=== PATIENT | male | born 1980 | race Caucasian/White ===

== ENCOUNTER 2017-01-24 16:35 | Emergency (ER) | payer OTHER ==
[~2017-01-24] VITALS: Ht 177.8 cm; Wt 73.0 kg
[2017-01-24 16:42] VITALS: Ht 177.8 cm; Wt 73.0 kg
[2017-01-24] MEDS ORDERED: HYDROmorphone INJ 1 MG/ML SYR IM STA (18:17)
[2017-01-24] MEDS ORDERED: KETOROLAC TROMETHAMINE 60 MG/2 ML VIAL IM STA (18:17)
[2017-01-24] MEDS ORDERED: DEXAMETHASONE SOD INJ 10 MG/ML VIAL IM ONE (18:30)
[2017-01-24] MEDS ORDERED: LRS20 PO (18:40)
[2017-01-24] MEDS ORDERED: PRED20TA PO (18:40)
--- NOTE | 2017-01-24 19:10 | DIAGNOSTIC IMAGING REPORT ---
LUMBAR SPINE 5 VIEWS HISTORY: Back pain from injury COMPARISON: None. FINDINGS: There is no fracture. No subluxation. Disc spaces are preserved for age. Mild levoscoliosis. The sacrum is intact. IMPRESSION: No fracture or subluxation within the lumbar spine. Mild levoscoliosis. Electronically signed by: Bk Jolley M.D. 01/24/2017 7:09 PM Dictated Date/Time: 01/24/2017 7:07 PM
--- NOTE | 2017-01-24 19:11 | DIAGNOSTIC IMAGING REPORT ---
THORACIC SPINE 3 VIEWS HISTORY: Back pain from injury COMPARISON: None. FINDINGS: There is no fracture. No subluxation. Mild disc space narrowing and small endplate osteophytes within the mid thoracic spine. Mild dextroscoliosis. IMPRESSION: No fracture or subluxation within the thoracic spine. Mild dextroscoliosis. Mild degenerative disc disease within the mid thoracic spine. Electronically signed by: Bk Jolley M.D. 01/24/2017 7:10 PM Dictated Date/Time: 01/24/2017 7:09 PM
[2017-01-24] MEDS ORDERED: DiphenhydrAMINE HCL 50 MG/ML VIAL IM STA (19:29)
[2017-01-24] MEDS ORDERED: MoRPHine SULFATE 10 MG/ML CARP/VIAL IM STA (19:29)
[2017-01-24] MEDS ORDERED: MoRPHine SULFATE 4 MG/ML 1 ML CARP\\VIAL ONE (19:54)
[2017-01-24] MEDS ORDERED: OXYC1TAB3 PO (21:02)
[2017-01-24] MEDS ORDERED: CYCL10TA6 PO (21:02)
[2017-01-24] MEDS ORDERED: MoRPHine SULFATE 4 MG/ML 1 ML CARP\\VIAL IM STA (21:03)
[2017-01-24 21:07] VITALS: BP 144/84; PULSE 85; TEMP 36.9; O2SAT 95
--- NOTE | 2017-01-24 21:10 | EMERGENCY ROOM VISIT NOTE ---
History First contact with patient: 18:05 Chief Complaint: BACK PAIN Stated Complaint: BACK PAIN History of Present Illness The patient is a 36 year old male who presents to the Emergency Room with complaints of a headache, neck pain, back pain and pain radiating down both legs to his feet. The patient reports that he was helping a neighbor push a car 2 days ago. The patient reports feeling a pop in the center of his back. The patient reports progressively worsening pain. The patient does admit to a history of scoliosis and occasional back problems. He does not recall ever having any MRIs of his back. The patient reports that he went to an urgent care center and was prescribed prednisone and Flexeril around lunchtime. The patient reports that he went home and his symptoms are not improving. He currently denies any bladder/bowel difficulties/incontinence, saddle anesthesias , foot drop or significant focal weakness of the lower extremities. He rates his discomfort a 9 out of 10. The patient was transported here via ambulance for further evaluation. Review of Systems 10 system review was performed and was negative except for pertinent positives and negatives as indicated in history of present illness Past Medical/Surgical History Medical Problems: (1) Orthopedic surgery (2) [place] Teeth Removal Family History Unremarkable Social History Smoking Status: Current Every Day Smoker Alcohol Use: none Marital Status: single Occupation Status: unemployed Current/Historical Medications Scheduled Cyclobenzaprine Hcl (Flexeril), 10 MG PO TID Prednisone (Prednisone), 20 MG PO UD Scheduled PRN Baclofen (Baclofen), 20 MG PO BID PRN for Muscle Spasm Oxycodone Ir (Roxicodone Ir), 1-2 TAB PO Q4H PRN for Pain Allergies Coded Allergies: Morphine (Verified Allergy, Mild, HIVES, 05/25/15) Codeine (Unverified Allergy, Unknown, SWELLING/DIFFICULTY BREATHING, ) Physical Exam Vital Signs Date Time Temp Pulse Resp B/P Pulse Ox O2 Delivery O2 Flow Rate FiO2 01/24/17 19:52 144/84 01/24/17 19:26 85 18 173/155 01/24/17 16:42 36.9 123 18 130/92 95 Room Air Physical Exam CONSTITUTIONAL: Healthy and well nourished. Alert and oriented X 3 with positive affect. Patient appears in moderate discomfort from pain. HEENT: Normocephalic, atraumatic. Pupils equal, round and reactive. Ears and nares are clear. Noted photophobia. No subconjunctival hemorrhage, hemotympanum, raccoon's eyes or Wren sign. NECK: The patient has minimal tenderness to palpation of the cervical paraspinous muscles. RESPIRATORY: Clear to auscultation bilaterally with no wheezing, crackles, rhonchi or stridor. CARDIOVASCULAR: Regular rate and rhythm with no murmurs, rubs or gallops. GASTROINTESTINAL: Bowel sounds present in all quadrants. Soft and nontender to palpation. MUSCULOSKELETAL: Examination shows diffuse tenderness to palpation through the thoracolumbar paraspinous muscles. The patient has no focal central spinal discomfort or step-offs. Pelvis stable with rock. Negative logroll bilaterally. Positive straight leg raise bilaterally. Equal hand evidence custodian bilaterally. Ankle plantar/dorsiflexion strength is 4 out of 5 and symmetric bilaterally. Pedal pulses are intact. INTEGUMENTARY: No rash or other significant dermatologic conditions noted. NEUROLOGIC: Cranial nerves II-XII grossly intact. No focal neurologic deficits noted. Upper and lower extremity deep tendon reflexes are 2+ and symmetric bilaterally. Medical Decision & Procedures ER Provider Diagnostic Interpretation: My interpretation of thoracic and lumbar spine x-rays does not show any acute fractures or subluxations. Radiologist reports were also reviewed with concurrence. Medications Administered Medications (Trade) Dose Ordered Sig/Mora Route Start Time Stop Time Status Last Admin Dose Admin Ketorolac Tromethamine (Toradol Inj) 60 mg NOW STAT IM 01/24/17 18:17 01/24/17 18:19 DC 01/24/17 18:36 60 MG Hydromorphone HCl (Dilaudid Inj) 1 mg ONE STAT IM 01/24/17 18:17 01/24/17 18:19 DC 01/24/17 18:35 1 MG Dexamethasone Sodium Phosphate (Decadron Inj) 10 mg NOW ONCE IM 01/24/17 18:30 01/24/17 18:31 DC 01/24/17 18:36 10 MG Diphenhydramine HCl (Benadryl Inj) 12.5 mg NOW STAT IM 01/24/17 19:29 01/24/17 19:31 DC 01/24/17 20:04 12.5 MG Morphine Sulfate (MoRPHine SULFATE INJ) 8 mg STK-MED ONCE .ROUTE 01/24/17 19:54 01/24/17 19:57 DC 01/24/17 20:03 8 MG ED Course Patient history and physical exam were performed. Nurse's notes were reviewed. The patient was administered IM Dilaudid, Toradol and Decadron. X-rays of the thoracolumbar spine were normal. The patient reported that he had no relief with the Dilaudid. It is noted that he has morphine listed as an allergy ; however, the tissue reports that he does not know how that was placed in his medical record as he has had morphine in the past without adverse reaction. The patient also reported that his ears felt like they were on fire. He denied any other pruritus or swelling. At this point, I did elect to administer Benadryl 12.5 mg and morphine 8 mg IM. This further reduced his pain to a 6 out of 10, but still requested some additional medication prior to discharge. At this point, he was administered morphine 4 mg IVP. Patient was provided home packs and prescriptions for Flexeril and OxyIR 5 mg. He was encouraged to take ibuprofen and Tylenol in alternating fashion for baseline pain relief. Intermittent application of ice to the back for the next 24 hours, then heat as needed. The patient was instructed to follow-up with his PCP for further management, especially if symptoms are not improving within the next 48 hours. The patient voiced understanding of all discharge instructions, was happy with plan of care, and rated his pain a 5 out of 10 at the conclusion of my exam. Medical Decision [place] Drug Monitoring Program Search Results: patient reviewed within database, no issues identified Impression Primary Impression: Lumbar strain Departure Information Prescriptions Oxycodone Ir (Roxicodone Ir) 5 Mg Tab 1-2 TAB PO Q4H Y for Pain, #15 TAB For Initial Treatment Prov: Tariq Vann PA 01/24/17 Cyclobenzaprine Hcl (FLEXERIL) 10 Mg Tab 10 MG PO TID for spasm for 15 Days, #45 TAB Prov: Tariq Vann PA 01/24/17 Referrals No Doctor, Assigned (PCP) Patient Instructions My [facility] Problem Qualifiers Primary Impression: Lumbar strain Encounter type: initial encounter Qualified Codes: S39.012A - Strain of muscle, fascia and tendon of lower back, initial encounter
[2017-01-24] MEDS ORDERED: OXYCODONE IR HOME PACK PO ONE (21:15)
[2017-01-24] MEDS ORDERED: FLEXERIL HOME PACK 10 MG VIAL PO ONE (21:15)
== END 2017-01-24 21:09 | disposition home or self-care (01) ==
LOC: C.EDB 16:37
DX: S39.012A Strain of muscle, fascia and tendon of lower back, initial encounter (principal); X50.1XXA Overexertion from prolonged static or awkward postures, initial encounter; Y92.89 Other specified places as the place of occurrence of the external cause; F17.210 Nicotine dependence, cigarettes, uncomplicated

== ENCOUNTER 2017-02-20 21:01 | Emergency (ER) | payer OTHER ==
[~2017-02-20] VITALS: Ht 180.3 cm; Wt 75.0 kg
[~2017-02-20 21:01] MED LIST: LRS20 PO; OXYC1TAB3 PO; PRED20TA PO
[2017-02-20 21:11] VITALS: TEMP 36.9; Ht 180.3 cm; Wt 75.0 kg
[2017-02-20] MEDS ORDERED: XYLOCAINE 1%/SOD BICARB 20 ML VIAL INFIL ONE (21:30)
--- NOTE | 2017-02-20 22:01 | DIAGNOSTIC IMAGING REPORT ---
CT HEAD WITHOUT CONTRAST (CT) CLINICAL HISTORY: Head pain status post head trauma. Intoxication. COMPARISON STUDY: 07/20/2015 TECHNIQUE: Axial CT of the brain is performed from the vertex to the skull base. IV contrast was not administered for this examination. CT DOSE: FINDINGS: No intra or extra-axial mass lesions are visualized. There is no CT evidence of acute cortical infarction. There is no evidence of midline shift. There is no acute hemorrhage. No calvarial fractures are visualized. There is no evidence of pathologic ventricular dilatation. There is no evidence of acute sinusitis. There is a stable sphenoid sinus retention cyst/polyp IMPRESSION: No acute intracranial findings Electronically signed by: Ethan Jones M.D. 02/20/2017 9:59 PM Dictated Date/Time: 02/20/2017 9:58 PM
--- NOTE | 2017-02-20 22:04 | DIAGNOSTIC IMAGING REPORT ---
CT OF THE CERVICAL SPINE CLINICAL HISTORY: Neck pain status post trauma COMPARISON STUDY: 07/20/2015 CT DOSE: TECHNIQUE: CT scan of the cervical spine was performed from the skull base to the thoracic inlet. Images are reviewed in the axial, sagittal, and coronal planes. IV contrast was not administered for this examination. FINDINGS: The visualized portions of the lung apices reveal no evidence of pneumothorax. The prevertebral soft tissues are normal. No fractures or subluxations are visualized. There is a stable calcification within the C2-3 disc. There is a chronic deformity of the left thyroid cartilage. IMPRESSION: No evidence of acute fracture or traumatic subluxation. Electronically signed by: Ethan Jones M.D. 02/20/2017 10:02 PM Dictated Date/Time: 02/20/2017 10:00 PM
--- NOTE | 2017-02-20 22:06 | DIAGNOSTIC IMAGING REPORT ---
CT FACIAL BONES-MXILLOFAC WITHOUT CT DOSE: 1342.54 mGy.cm CLINICAL HISTORY: Facial pain status post trauma COMPARISON STUDY: No previous studies for comparison. TECHNIQUE: Helical images were acquired in the transverse plane. The study was reviewed and analyzed on the independent 3-D workstation. The pterygoid plates appear intact. The zygomatic arches appear intact. The globes appear intact. There is no evidence of orbital emphysema. The orbital smart and floor appear intact. The mandibular condyles appear intact. There is nasal septal deviation to the right. There is a left-sided nasal septal spur. There is a sphenoid sinus retention cyst/polyp. IMPRESSION: No facial fractures identified. Electronically signed by: Ethan Jones M.D. 02/20/2017 10:04 PM Dictated Date/Time: 02/20/2017 10:02 PM
[2017-02-20] MEDS ORDERED: KETOROLAC TROMETHAMINE 60 MG/2 ML VIAL IM STA (22:23)
[2017-02-20] MEDS ORDERED: AMOXICILLIN HOME PACK 250 MG/TAB PO ONE (22:30)
[2017-02-20] MEDS ORDERED: CHLORHEXIDINE GLUCONATE 0.12% 480 ML MT ONE (22:30)
[2017-02-20] MEDS ORDERED: TRAM-10 PO (22:40)
[2017-02-20] MEDS ORDERED: AMOX500C3 PO (22:40)
--- NOTE | 2017-02-20 22:43 | EMERGENCY ROOM VISIT NOTE ---
History First contact with patient: 21:13 Chief Complaint: LACERATION/CUT (SUT/DERMABOND) Stated Complaint: FALL, LIP LACERATION Nursing Triage Summary: patient fell at residents. suffered lac to left upper lip. walked to walk in clinic in [place] where staff refused to see him due to unknown reasons. they called [facility] who arrived and called ambulance for transport to hospital. patient states he has VINCENT but no other ailments. denies LOC. smells of alcohol History of Present Illness The patient is a 36 year old male who presents to the Emergency Department via EMS for evaluation of his facial laceration. The patient reports that he tripped well and related up the steps at his mother's home causing him to fall striking his face and the ground. He reports that he was able to catch himself somewhat. He complains of pain to the LEFT upper lip with associated laceration. He Describes a headache at this point. The patient reports that he was dropped off at the walk-in clinic in [place]. They declined to treat the patient. [facility] was contacted and the patient was offered an ambulance to bring him to the emergency Department for further evaluation and management. The patient admits to drinking alcohol tonight. He admits to "3 beers". Patient denies any prefall headaches, distance, lightheadedness, chest pain, palpitations, shortness of breath. He reports most recently being treated for low back pain issues after straining his back. He denies any numbness or tingling into the distal cavities. He denies a loss of control bowel/bladder saddle anesthesia. He denies any injury to the back this evening. He is had no follow-up since his recent visit to this facility. He denies any other drug use. He rates his current discomfort as a 3/10. Review of Systems A complete 10-point Review of Systems was discussed with the patient, with pertinent positives and negatives listed in the History of Present Illness. All remaining Review of Systems questions can be considered negative unless otherwise specified. Past Medical/Surgical History Medical Problems: (1) Orthopedic surgery (2) [place] Teeth Removal Social History Smoking Status: Current Every Day Smoker Alcohol Use: none Marital Status: single Occupation Status: unemployed Current/Historical Medications Scheduled Amoxicillin (Amoxil), 500 MG PO TID Scheduled PRN Tramadol (Ultram), 1-2 TAB PO Q4H PRN for Pain Allergies Coded Allergies: Morphine (Verified Allergy, Mild, HIVES, 05/25/15) Codeine (Unverified Allergy, Unknown, SWELLING/DIFFICULTY BREATHING, ) Physical Exam Vital Signs Date Time Temp Pulse Resp B/P Pulse Ox O2 Delivery O2 Flow Rate FiO2 02/20/17 23:05 90 18 123/83 96 02/20/17 21:13 93 02/20/17 21:11 36.9 96 18 129/88 99 Room Air Pain Rating (0-10): 3 Physical Exam VITAL SIGNS - Vital signs and nursing notes were reviewed. GENERAL - 36-year-old male appearing her stated age. Intoxicated. Smells of alcohol. HEAD - Normocephalic. Small laceration measuring 1.0 cm noted to the upper LEFT sided lip. Inner lip laceration to the LEFT-sided upper lip measuring a total of 2.5 center meters noted. Scalp are traction. No deep structures appreciated. No Indication between lacerations noted. No Wren's Sign or Raccoon's Eyes. No depressed skull fractures palpable. EYES - PERRL with EOMI bilaterally. Without subconjunctival hemorrhage. Palpebral conjunctiva pink and moist with no injection. EARS - No deformities of external structures noted on gross examination bilaterally. No hemotympanum present. No tympanic perforation noted. Handle of malleus, umbo, cone of light, pars tensa/flaccid all easily visualized. NOSE - Midline and without cyanosis. No epistaxis or clear watery discharge noted. Septum midline without deviation. No septal hematoma noted. No overlying ecchymosis noted. MOUTH/OROPHARYNX - As above. Without perioral cyanosis. Tongue midline with equal elevation of palate bilaterally. No blood noted in the oropharynx. No tonsillar hypertrophy, erythema, or exudates noted. No dental fractures noted. NECK - FROM assessed. No nuchal rigidity. No tenderness to palpation over the cervical spinous processes. No cervical paraspinal muscle tenderness noted. LUNGS - Chest wall symmetric without accessory muscle use, intercostals retractions, or central cyanosis. Normal vesicular breath sounds CTA B/L. No wheezes, rales, or rhonchi appreciated. CARDIAC - RRR with S1/S2. No murmur, rubs, or gallops appreciated. ABDOMEN - Abdominal contour flat without pulsations or visible masses. BS normoactive all four quadrants. EXTREMITIES - No gross deformities noted of the extremities. +5/5 strength noted in UE/LE bilaterally. NEUROLOGIC - Cranial nerves II through XII grossly intact. Sensory intact to light touch throughout. PSYCH - A&Ox3 and cooperates fully with examiner. Intoxicated. Smells of alcohol. Medical Decision & Procedures ER Provider Diagnostic Interpretation: Radiological imaging and reports were reviewed by myself. Radiologist's Interpretation as follows: CT OF THE CERVICAL SPINE CLINICAL HISTORY: Neck pain status post trauma COMPARISON STUDY: 07/20/2015 CT DOSE: TECHNIQUE: CT scan of the cervical spine was performed from the skull base to the thoracic inlet. Images are reviewed in the axial, sagittal, and coronal planes. IV contrast was not administered for this examination. FINDINGS: The visualized portions of the lung apices reveal no evidence of pneumothorax. The prevertebral soft tissues are normal. No fractures or subluxations are visualized. There is a stable calcification within the C2-3 disc. There is a chronic deformity of the left thyroid cartilage. IMPRESSION: No evidence of acute fracture or traumatic subluxation. CT HEAD WITHOUT CONTRAST (CT) CLINICAL HISTORY: Head pain status post head trauma. Intoxication. COMPARISON STUDY: 07/20/2015 TECHNIQUE: Axial CT of the brain is performed from the vertex to the skull base. IV contrast was not administered for this examination. CT DOSE: FINDINGS: No intra or extra-axial mass lesions are visualized. There is no CT evidence of acute cortical infarction. There is no evidence of midline shift. There is no acute hemorrhage. No calvarial fractures are visualized. There is no evidence of pathologic ventricular dilatation. There is no evidence of acute sinusitis. There is a stable sphenoid sinus retention cyst/polyp IMPRESSION: No acute intracranial findings CT FACIAL BONES-MXILLOFAC WITHOUT CT DOSE: 1342.54 mGy.cm CLINICAL HISTORY: Facial pain status post trauma COMPARISON STUDY: No previous studies for comparison. TECHNIQUE: Helical images were acquired in the transverse plane. The study was reviewed and analyzed on the independent 3-D workstation. The pterygoid plates appear intact. The zygomatic arches appear intact. The globes appear intact. There is no evidence of orbital emphysema. The orbital smart and floor appear intact. The mandibular condyles appear intact. There is nasal septal deviation to the right. There is a left-sided nasal septal spur. There is a sphenoid sinus retention cyst/polyp. IMPRESSION: No facial fractures identified. Medications Administered Medications (Trade) Dose Ordered Sig/Mora Route Start Time Stop Time Status Last Admin Dose Admin Chlorhexidine Gluconate (Peridex Oral Soln) 15 ml NOW ONCE MT 02/20/17 22:30 02/20/17 22:31 DC 02/20/17 22:45 15 ML Amoxicillin (Amoxil 250MG Home Pack) 1 homepack UD ONCE PO 02/20/17 22:30 02/20/17 22:31 DC 02/20/17 22:45 1 HOMEPACK Ketorolac Tromethamine (Toradol Inj) 60 mg NOW STAT IM 02/20/17 22:23 02/20/17 22:24 DC 02/20/17 22:46 60 MG Procedure Costs and benefits of performing primary wound closure versus no repair were discussed with the patient who verbalizes understanding. Verbal consent was obtained prior to performing the procedure. 1.0 cc of 1% buffered lidocaine was used to anesthetize the LEFT outer and inner lip lacerations. The wounds were cleansed and prepped in the typical sterile fashion utilizing normal saline and Betadine. The wounds were sterilely draped. Once proper anesthetization was established, the wounds were further examined and demonstrated no deep structures or communication lacerations. The wound was copiously irrigated with normal saline and Betadine. The laceration to the outer lip was closed using 3 simple interrupted 6-0 nylon sutures with the wound edges being well approximated. The inner lip laceration was repaired using 4 simple interrupted 6-0 Vicryl sutures with the wound edges being loosely approximated. Patient tolerated the procedure well. No complications were met. ED Course Patient was seen and evaluated by myself. CT of the head, facial bones, and cervical spine were obtained. Laceration was formed as described above. The patient was treated with 60 mg Toradol intramuscularly for complaint of back pain. Patient was provided initial dose of amoxicillin for likely as well as Peridex oral solution. Patient was educated on today's findings. The patient was instructed to follow-up with his primary care provider from today's visit. He was educated on worrisome symptoms for return visit to the emergency department. Patient discharged home in good condition. Medical Decision Given the patient's presentation and stated complaints, I did elect to perform the above-mentioned workup. The patient resents today after sustaining a mechanical fall. The patient is intoxicated and smells of alcohol on exam. He has no focal neurological deficits. CT of the head, cervical spine, and facial bones otherwise unremarkable. Facial laceration and inner lip lacerations were repaired. The patient was prophylactically provided antibiotics as well as mouthwash. He was provided a shot of Toradol for his continued complaints of pain. I'm not comfortable providing the patient a chronic pain medication for her ongoing back symptoms. I suspect the patient may be self-medicating with alcohol. Regardless, the patient's exam is otherwise unremarkable today. He will follow-up with his primary care provider for continued management. He will return for any changing or worsening symptoms. Patient discharged home in good condition. In the evaluation and treatment of this patient, the following differential diagnoses were considered: Concussion, Contrecoup Injury, Brain Tumor, Depression, Encephalitis, Hypothyroidism, Meningitis, CVA, TIA, Migraine, Cluster Headache, Intracranial Abnormality, Intracranial Hemorrhage, Subdural Hematoma, Subarachnoid Hemorrhage, Hydrocephalus. Impression Primary Impression: Facial laceration Additional Impressions: Laceration of mouth Fall Alcohol intoxication Departure Information Dispostion Home / Self-Care Condition GOOD Prescriptions Amoxicillin (AMOXIL) 500 Mg Cap 500 MG PO TID for 7 Days, #21 CAP Prov: Sagar Headley PA-C 02/20/17 Tramadol (Ultram) 50 Mg Tab 1-2 TAB PO Q4H Y for Pain, #8 TAB For Initial Treatment Prov: Sagar Headley PA-C 02/20/17 Referrals No Doctor, Assigned (PCP) Patient Instructions ED Laceration Lip Mouth [facility] Additional Instructions You have received 3 sutures on your upper lip. These sutures are NOT dissolvable and WILL need to be removed by a health care provider in 5-7 days. You can return to the Emergency Department or contact your Primary Care Provider to have the sutures removed. The sutures on the inner surface of the mouth aren't dissolvable and will dissolve over the next few days. Proper wound care is essential for adequate wound healing and infection prevention. You can shower and clean the wound with soap and water. Do not scour over the wound, pat dry with a towel. Do not submerse the wound (i.e. bathe or dish wash) until the sutures have been removed. You can use an antibiotic ointment with a dressing over the wound for the next 3-4 days. After this time you may leave the wound dry and open to the air. If crust develops over the wound you can use a Q-tip to apply a 1:1 peroxide:water solution to clean the wound. Look for signs of infection of the wound including: increased pain, swelling, foul discharge, streaking, or increased temperature. If any of these are noticed you should return to the Emergency Department for further assessment and treatment. As with any laceration you may have received nerve damage to the surrounding tissues. This damage may or may not be permanent. You should keep the area covered with sunscreen for the first 6 months to 1 year when at risk for exposure to help minimize scarring. You can also use scar reducing creams or Vitamin E oil to help minimize scarring. You have been prescribed Ultram to be used for pain control. You cannot drive or consume alcohol while on this medicine. This medicine should only be used for pain that cannot be controlled with [id number] pain medicines. You were prescribed Amoxicillin to be taken as prescribed. This is an antibiotic. All antibiotics have the potential to cause diarrhea. Stop this medication and contact a medical provider if you were to develop any significant adverse side effects including: wheezing, shortness of breath, passing out, vomiting, or a diffuse rash. Always take antibiotics as directed and COMPLETE the ENTIRE course regardless of the improvement of your symptoms. Please use the Peridex mouthwash 3 times daily to help prevent the development of infection. For pain control, you can use the following [id number] medicines (if >12 yo): - Regular strength (325mg/tab) Tylenol (acetaminophen) 2 tabs every 4-6 hours as needed. Do not exceed 12 tablets in a 24 hour period. Avoid taking more than 4 grams (4000 mg) of Tylenol per day. This includes any other sources of acetaminophen you may take on a regular basis. - Regular strength (200 mg/tab) Advil (ibuprofen) 1-2 tabs every 4-6 hours as needed. Do not exceed a dose of 3200 mg per day. Return to the emergency department if your symptoms worsen despite treatment course outlined above. Problem Qualifiers Primary Impression: Facial laceration Encounter type: initial encounter Qualified Codes: S01.81XA - Laceration without foreign body of other part of head, initial encounter Additional Impressions: Laceration of mouth Encounter type: initial encounter Qualified Codes: S01.512A - Laceration without foreign body of oral cavity, initial encounter Fall Encounter type: initial encounter Qualified Codes: W19.XXXA - Unspecified fall, initial encounter Alcohol intoxication Complication of substance-induced condition: uncomplicated Qualified Codes: F10.120 - Alcohol abuse with intoxication, uncomplicated
[2017-02-20 23:05] VITALS: BP 123/83; PULSE 90; O2SAT 96
== END 2017-02-20 23:05 | disposition home or self-care (01) ==
LOC: EDBD 21:01 → C.EDB 21:05
DX: S01.511A Laceration without foreign body of lip, initial encounter (principal); W10.9XXA Fall (on) (from) unspecified stairs and steps, initial encounter; Y92.009 Unspecified place in unspecified non-institutional (private) residence as the place of occurrence of the external cause; F10.120 Alcohol abuse with intoxication, uncomplicated; R51 Headache; F17.200 Nicotine dependence, unspecified, uncomplicated

== ENCOUNTER 2017-02-23 12:29 | Emergency (ER) | payer OTHER ==
[~2017-02-23] VITALS: Ht 177.8 cm; Wt 77.1 kg
[~2017-02-23 12:29] MED LIST changes: +AMOX500C3 PO; -LRS20 PO; -OXYC1TAB3 PO; -PRED20TA PO; +TRAM-10 PO
[2017-02-23 12:39] VITALS: TEMP 36.7; Ht 177.8 cm; Wt 77.1 kg
--- NOTE | 2017-02-23 14:02 | DIAGNOSTIC IMAGING REPORT ---
LUMBAR SPINE CT CT DOSE: 655.07 mGy.cm HISTORY: Trauma Fall. Low back pain TECHNIQUE: Multiaxial CT images of the lumbar spine were performed and reformatted in the sagittal and coronal plane without the use of contrast. COMPARISON: None. FINDINGS: No fractures. No subluxation. Paraspinal soft tissues are unremarkable. IMPRESSION: No fractures within the lumbar spine. Electronically signed by: Jorge Choi M.D. 02/23/2017 2:00 PM Dictated Date/Time: 02/23/2017 1:48 PM
[2017-02-23] MEDS ORDERED: KETOROLAC TROMETHAMINE 30 MG/ML VIAL IV STA (14:23)
[2017-02-23 14:27] VITALS: BP 145/89; PULSE 76; O2SAT 98
[2017-02-23] MEDS ORDERED: PRED20TA PO (14:45)
[2017-02-23] MEDS ORDERED: CYCL10TA6 PO (14:45)
--- NOTE | 2017-02-23 17:18 | EMERGENCY ROOM VISIT NOTE ---
History First contact with patient: 12:42 Chief Complaint: BACK PAIN Stated Complaint: BACK PAIN History of Present Illness The patient is a 36 year old male who presents to the Emergency Room with complaints of back pain worsening over the past 4 days. The patient states that he had a fall 4 days ago, and has had back pain ever since. The patient was seen and evaluated after the fall. Evidently the patient was intoxicated, and there was significant concern for alcoholism. The patient suffered multiple injuries to his face which were repaired and appears to be healing well. The patient was given tramadol for his pain at that visit, and discharged to follow with his primary care physician. The patient states that he does not have a primary care physician. He arrives to the emergency department today by ambulance as he did not have a ride to the emergency department any other way. He does not have new injury or trauma. His discomfort will sometimes radiate down his left leg. No difficulty with using the bathroom. He rates his discomfort a 9/10. He has had morphine in the ambulance prior to arrival. Review of Systems More than 10 systems were reviewed and otherwise negative with the exception of history of present illness. Past Medical/Surgical History Medical Problems: (1) Orthopedic surgery (2) [place] Teeth Removal Family History No pertinent family history Social History Smoking Status: Current Some Day Smoker Alcohol Use: none Marital Status: single Occupation Status: unemployed Current/Historical Medications Scheduled Amoxicillin (Amoxil), 500 MG PO TID Cyclobenzaprine Hcl (Flexeril), 10 MG PO TID Prednisone (Prednisone), 0 PO DAILY Allergies Coded Allergies: Morphine (Verified Allergy, Mild, HIVES, 05/25/15) Codeine (Unverified Allergy, Unknown, SWELLING/DIFFICULTY BREATHING, ) Physical Exam Vital Signs Date Time Temp Pulse Resp B/P Pulse Ox O2 Delivery O2 Flow Rate FiO2 02/23/17 14:27 76 16 145/89 98 Room Air 02/23/17 12:39 36.7 93 18 174/96 99 Room Air Pain Rating (0-10): 2.0 Physical Exam VITALS: Vitals are noted on the nurse's note and reviewed by myself. Vital signs stable. GENERAL: Well-developed, well-nourished, white male, who is in no acute distress and resting comfortably. Patient is cooperative with the examination. HEAD: Normocephalic atraumatic. HEART: Regular rate and rhythm without murmurs gallops or rubs. LUNGS: Clear to auscultation bilaterally without wheezes, rales or rhonchi. No retractions or accessory muscle use. MUSCULOSKELETAL: No muscle atrophy, erythema, or edema noted. Full range of motion without joint tenderness in all extremities. No tenderness to palpation. Normal gait. Strength 5/5 throughout. No spinal process or paravertebral tenderness appreciated on palpation. No saddle paresthesias. Negative straight leg bilateral NEURO: Patient was alert and oriented to person place and time. CN II through XII grossly intact. Deep tendon reflexes 2+ throughout. SKIN: The skin was with well healing laceration of the left side face. Sutures are not ready for removal. Medical Decision & Procedures ER Provider Diagnostic Interpretation: LUMBAR SPINE CT CT DOSE: 655.07 mGy.cm HISTORY: Trauma Fall. Low back pain TECHNIQUE: Multiaxial CT images of the lumbar spine were performed and reformatted in the sagittal and coronal plane without the use of contrast. COMPARISON: None. FINDINGS: No fractures. No subluxation. Paraspinal soft tissues are unremarkable. IMPRESSION: No fractures within the lumbar spine. Medications Administered Medications (Trade) Dose Ordered Sig/Mora Route Start Time Stop Time Status Last Admin Dose Admin Ketorolac Tromethamine (Toradol Inj) 30 mg NOW STAT IV 02/23/17 14:23 02/23/17 14:24 DC 02/23/17 14:27 30 MG ED Course Physical exam and history were performed. Nursing notes and EMR were reviewed. Patient appears to have low back pain for the past 4 days. Review of EMR shows this is the patient's third visit to the department in about the past month with this complaint. He states that he has not followed with a primary care because he does not have one. His examination does not seem consistent with cauda equina or spinal abscess. Neurologically he is intact. Because of the fall that occurred while he was intoxicated I did elect to perform a CT scan of lumbar spine. CT scan is as above and does not show acute fracture or traumatic injury. As he does not have neurologic deficit on exam the patient appears stable for discharge home. He did request something for pain and was given IV Toradol as he had IV in place from EMS transport. I do not feel comfortable providing the patient prescription pain medication. There is concern for alcohol use/abuse based on history. Additionally the patient is now frequenting the emergency department for his back pain. I did engage case management regarding this patient, and they were able to provide him resources to help establish an appropriate primary care physician. The patient is a good candidate for physical therapy, however this must be performed through her PCPs office. The patient will be given a course of prednisone and Flexeril. He may take ibuprofen and Tylenol. He was otherwise invited back to the ER with any new, worsening, or concerning symptoms. The chart was completed utilizing [employer] Speech Voice Recognition Software. Grammatical errors, random word insertions, pronoun errors, and incomplete sentences are an occasional consequence of this system due to software limitations, ambient noise, and hardware issues. Any formal questions or concerns about the content, text, or information contained within the body of this dictation should be directly addressed to the provider for clarification. . Medical Decision Differential diagnosis: Etiologies such as musculoskeletal, disc herniation, fracture, aortic disease, metastatic disease, cord compression, discitis, infection, renal colic, gastrointestinal, acute exacerbation of chronic back pain, sciatica, cauda equina, as well as others were entertained. Impression Primary Impression: Low back pain Departure Information Dispostion Home / Self-Care Condition GOOD Prescriptions Cyclobenzaprine Hcl (FLEXERIL) 10 Mg Tab 10 MG PO TID for 7 Days, #21 TAB Prov: Alex Campos PA-C 02/23/17 Prednisone (Prednisone) 20 Mg Tab 0 PO DAILY, #18 TAB 3 DAILY FOR 3 DAYS, THEN 2 DAILY FOR 3 DAYS, THEN 1 DAILY FOR 3 DAYS. Prov: Alex Campos PA-C 02/23/17 Forms HOME CARE DOCUMENTATION FORM, IMPORTANT VISIT INFORMATION Patient Instructions My [facility] Additional Instructions You were seen and evaluated today on an emergency basis only. This is not a substitute for, or an effort to provide, complete comprehensive medical care. It is not possible to recognize and treat all injuries or illnesses in a single emergency department visit. For this reason it is recommended that you followup with your primary care physician as soon as possible for ongoing care and evaluation. For baseline pain relief you may alternate ibuprofen and acetaminophen every 4 hours for pain control. Take 600 mg ibuprofen (Advil) and then 4 hours later take 1000 mg acetaminophen (Tylenol). Do not take more than 3000 mg acetaminophen in a single day. Flexeril 1 tablet up to 3 times a day as needed for muscle spasms. No driving, working, or alcohol use with Flexeril. Take prednisone as prescribed You are welcome to return to the emergency department anytime with new, worsening, or concerning symptoms.
== END 2017-02-23 15:06 | disposition home or self-care (01) ==
LOC: EDBD 12:29 → C.EDC 12:30
DX: M54.5 Low back pain (principal); Z91.81 History of falling; F17.210 Nicotine dependence, cigarettes, uncomplicated

== ENCOUNTER 2017-08-10 13:29 | Emergency (ER) | payer OTHER ==
[~2017-08-10] VITALS: Ht 179.1 cm; Wt 76.1 kg
[~2017-08-10 13:29] MED LIST changes: -AMOX500C3 PO; +PRED20TA PO; -TRAM-10 PO
[2017-08-10 13:42] VITALS: TEMP 36.9; Ht 179.1 cm; Wt 76.1 kg
[2017-08-10] MEDS ORDERED: PRED20TA PO (13:51)
[2017-08-10 15:01] VITALS: BP 137/94; PULSE 83; O2SAT 97
--- NOTE | 2017-08-11 13:41 | EMERGENCY ROOM VISIT NOTE ---
ED Visit Note First contact with patient: 13:47 Chief Complaint: I'm having left knee pain. History of Present Illness: Mr. Angulo is a 36-year-old white male who ambulates into the ED complaining of left knee pain. Patient denies any previous significant injuries or surgeries to the left knee. Patient reports he was playing with his children yesterday afternoon and twisted his knee. He is not exactly sure the mechanism of injury. Since the injury he has been having diffuse knee pain with prominence in the medial joint line. He describes his pain as a deep achy sensation. He rates his discomfort 8/10. His pain is nonradiating. His pain worsens with flexion beyond 90, palpation of the medial joint line and stressing of the medial collateral ligament. He has not identified any alleviating factors related to the pain. He reports she has not taken medications for pain prior to arrival at the hospital. Additionally patient reports he's been feeling some clicking and popping in his left knee since the injury. He does report one time the knee locked in his mother unlocked it by manipulating the knee. He denies any associated hip pain, thigh pain, lower leg pain, ankle pain, leg weakness/numbness/tingling. Review of Systems: As noted above in history of present illness. Past Medical History: Unspecified right great toe surgery. Current Medications: Prednisone. Allergies to Medications: Codeine, morphine. Social History: Patient is currently employed; he lives with his mother and feels safe in his home environment; he admits to tobacco and alcohol use. Physical Examination: Vital Signs: Date Time Temp Pulse Resp B/P (MAP) Pulse Ox O2 Delivery O2 Flow Rate FiO2 08/10/17 15:01 83 16 137/94 97 Room Air 08/10/17 13:42 36.9 105 18 137/84 99 Room Air GENERAL: 36-year-old male in mild to moderate distress due to pain, nontoxic- appearing, afebrile and hemodynamically stable. NEUROLOGICAL: Awake, alert and oriented to person, place and time. Answering questions appropriately and following commands. Limped gait. SKIN: Warm, dry and pink. No soft tissue trauma noted. LEFT LOWER EXTREMITY: No gross bony deformity. No shortening or malrotation. No tenderness over the hip, thigh, lower leg, ankle or foot. Moderate tenderness over the medial joint line with mild swelling but no bony deformity or crepitus. Mild tenderness over the lateral joint line without swelling, bony deformity or crepitus. Negative ballottement test. Negative bounce test. Negative patellar apprehension test. Mild laxity of the medial collateral ligament when compared bilaterally. No laxity of the lateral collateral ligament. Negative Julia's test. 5/5 muscle strength in flexion and extension of the knee and plantar flexion and dorsiflexion of the ankle. Throughout the extremity the skin was warm and pink and capillary refill is brisk. He was able to distinguish light sensations through all dermatomes. ED Course: Patient is assessed as noted above. Patient's medication list was reviewed. Patient is given ice for pain and comfort. Patient was placed in a knee immobilizer and on nonweightbearing crutches. Patient was educated about today's findings and instructed on his treatment plan ; he verbalized understanding and agreement with this plan. Clinical Impression: Medial collateral ligament strain of the left knee. Questionable meniscus injury. Disposition: Patient discharged home in stable condition; prior to departure he was reassessed and subjectively reported he was feeling much better and rated his discomfort 2/10. Plan: Comfort measures including rest, ice, splint and crutch use were discussed with the patient. Patient was placed on a sliding pain medication scale of ibuprofen, acetaminophen and Ultram; patient's name was checked in the state database and no red flags were noted. Patient was encouraged to follow-up with orthopedics for specialty care and treatment. Patient was encouraged return ED for worsening/uncontrolled pain, uncontrolled swelling, leg weakness/numbness/tingling or any new/concerning symptoms.
== END 2017-08-10 15:06 | disposition home or self-care (01) ==
LOC: C.EDB 13:30 → C.EDD 15:06
DX: S83.412A Sprain of medial collateral ligament of left knee, initial encounter (principal); X50.9XXA Other and unspecified overexertion or strenuous movements or postures, initial encounter; F17.200 Nicotine dependence, unspecified, uncomplicated